=== PATIENT | male | born 1940 | race Caucasian/White ===

== ENCOUNTER 2020-09-26 07:25 | Day surgery (SDC) | payer MEDICARE ==
[~2020-09-26] VITALS: Ht 177.8 cm; Wt 101.0 kg
[~2020-09-26 07:25] MED LIST: ATEN100 PO; Aspirin EC81 MG PO; FIBE4P PO; Inderal 20 mg T20 MG PO; JARDIANCE10 MG PO; LEVSOD75 PO; LOSARTAN-HCTZ1 EACH PO; MULVITA PO; TAMS.4ER PO
--- NOTE | 2020-09-26 07:42 | NUR ---
09/26/20 0742 Abbey Schmid TETRACAINE DROP PLACED IN LEFT EYE PER DR ORDER AT 0740.
--- NOTE | 2020-09-26 08:31 | NUR ---
09/26/20 0831 Suzie Olmstead DCBOO +19.5 SN:[id number] exp 06/18/22 used and implanted left eye
== END 2020-09-26 09:02 | disposition home or self-care (01) ==
LOC: ORSCSDS 07:25
PROVIDERS: Ophthalmology
PROC: 08RK3JZ Replacement of Left Lens with Synthetic Substitute, Percutaneous Approach (ICD-10-PCS; principal; 2020-09-26 08:45)
DX: H25.12 Age-related nuclear cataract, left eye (principal); E03.9 Hypothyroidism, unspecified; E11.9 Type 2 diabetes mellitus without complications; N18.2 Chronic kidney disease, stage 2 (mild); Z87.891 Personal history of nicotine dependence; Z79.899 Other long term (current) drug therapy; E66.9 Obesity, unspecified; Z68.32 Body mass index [BMI] 32.0-32.9, adult
CPT/HCPCS: 82947; J2001; J2250; J3010; J3301; J7040; V2632

== ENCOUNTER 2020-10-31 06:14 | Day surgery (SDC) | payer MEDICARE ==
[~2020-10-31] VITALS: Ht 167.6 cm; Wt 101.6 kg
--- NOTE | 2020-10-31 06:27 | NUR ---
10/31/20 0658 Tonya Steve APPLED TO RIGHT EYE AT 0647
== END 2020-10-31 08:03 | disposition home or self-care (01) ==
LOC: ORSCSDS 06:14
PROVIDERS: Ophthalmology
PROC: 08RJ3JZ Replacement of Right Lens with Synthetic Substitute, Percutaneous Approach (ICD-10-PCS; principal; 2020-10-31 07:30)
DX: H25.11 Age-related nuclear cataract, right eye (principal); E11.22 Type 2 diabetes mellitus with diabetic chronic kidney disease; I12.9 Hypertensive chronic kidney disease with stage 1 through stage 4 chronic kidney disease, or unspecified chronic kidney disease; N18.2 Chronic kidney disease, stage 2 (mild); E66.9 Obesity, unspecified; Z68.32 Body mass index [BMI] 32.0-32.9, adult; Z79.82 Long term (current) use of aspirin; Z79.899 Other long term (current) drug therapy
CPT/HCPCS: 82947; J2001; J2250; J3010; J3301; J7040; V2632